=== PATIENT | male | born 1960 | race Two or more races ===

== ENCOUNTER 2018-03-15 12:24 | Day surgery (SDC) | payer BC ==
[~2018-03-15] VITALS: Ht 182.9 cm; Wt 128.9 kg
[2018-03-15] MEDS ORDERED: LACTATED RINGERS 1,000 ML IV SCH (12:58)
[2018-03-15] MEDS ORDERED: LOSA1TAB25 PO (13:06)
[2018-03-15] MEDS ORDERED: SULF1TAB24 PO (13:06)
[2018-03-15] MEDS ORDERED: FINA5TAB4 PO (13:06)
[2018-03-15] MEDS ORDERED: MELO15TA24 PO (13:06)
[2018-03-15] MEDS ORDERED: ROSU10TA PO (13:06)
[2018-03-15] MEDS ORDERED: PRED20TA PO (13:06)
[2018-03-15 13:12] VITALS: BP 146/96
[2018-03-15] MEDS ORDERED: PLEASE ENTER HEIGHT AND WEIGHT MC SCH (13:30)
[2018-03-15] MEDS ORDERED: PLEASE ENTER ALLERGIES MC SCH (13:30)
[2018-03-15] MEDS ORDERED: EPINEPHRINE 1 MG/ML, 1ML ONE (13:31)
[2018-03-15] MEDS ORDERED: BUPIVACAINE/PF 0.5% ONE (13:31)
[2018-03-15] MEDS ORDERED: MIDAZOLAM 1 MG/ML, 2ML ONE (13:34)
[2018-03-15] MEDS ORDERED: FENTANYL PF 100 MCG/2ML ONE ×4 (13:34→15:09)
[2018-03-15] MEDS ORDERED: LABETALOL 5MG/ML, 20ML IV PRN (14:00)
[2018-03-15] MEDS ORDERED: hydrALAzine 20 MG/ML, 1ML IV PRN (14:00)
[2018-03-15] MEDS ORDERED: EPHEDRINE 50 MG/ML, 1ML IVPush PRN (14:00)
[2018-03-15] MEDS ORDERED: OXYcodone 5 MG/5 ML ORAL.SOL UDC PO PRN (14:00)
[2018-03-15] MEDS ORDERED: ONDANSETRON 2MG/ML, 2ML IVPush PRN (14:00)
[2018-03-15] MEDS ORDERED: morphine SULFATE 10 MG/ML, 1ML IV PRN (14:00)
[2018-03-15] MEDS ORDERED: ACETAMINOPHEN 325 MG TABLET PO PRN (14:00)
[2018-03-15] MEDS ORDERED: PROMETHAZINE 25 MG/ML, 1ML IV PRN (14:00)
[2018-03-15] MEDS ORDERED: MEPERIDINE/PF 25MG/0.5ML IVPush PRN (14:00)
[2018-03-15] MEDS ORDERED: METOPROLOL 1 MG/ML, 5ML IV PRN (14:00)
[2018-03-15] MEDS ORDERED: ALBUTEROL SULFATE 2.5 MG/3 ML NPPB PRN (14:00)
[2018-03-15] MEDS ORDERED: PROPOFOL 10 MG/ML, 20ML ONE (14:06)
[2018-03-15] MEDS ORDERED: CEFAZOLIN 1,000 MG ONE ×3 (14:06)
[2018-03-15] MEDS ORDERED: DEXAMETHASONE 4 MG/ML, 1ML ONE (14:06)
[2018-03-15] MEDS ORDERED: METOCLOPRAMIDE 5 MG/ML, 2ML ONE (14:07)
[2018-03-15 14:57] LABS: ALBUMIN 3.7 g/dL (3.4-5.0); ANION GAP 9 mmol/L (5-15); CALCIUM 8.8 mg/dL (8.5-10.1); CHLORIDE 107 mmol/L (98-107)
[2018-03-15 15:02] LABS: ALANINE AMINOTRANSFERASE 26 U/L (12-78); ALKALINE PHOSPHATASE 82 U/L (45-117); BILIRUBIN,TOTAL 1.2 mg/dL (0.2-1.0); CREATININE 0.65 mg/dL (0.7-1.3); TOTAL PROTEIN 7.6 g/dL (6.4-8.2)
[2018-03-15] MEDS ORDERED: ACETAMINOPHEN 650 MG/20.3 ML UDC ONE (15:09)
[2018-03-15] MEDS ORDERED: OXYcodone 5 MG/5 ML ORAL.SOL UDC ONE (15:09)
[2018-03-15] MEDS: FENTANYL PF 100 MCG/2ML IV PRN ×3 (15:15→15:35)
== END 2018-03-15 18:45 | disposition home or self-care (01) ==
LOC: OUT 12:24
PROVIDERS: ATTEND Surgery
DX: I83.018 Varicose veins of right lower extremity with ulcer other part of lower leg (principal); I10 Essential (primary) hypertension; E66.01 Morbid (severe) obesity due to excess calories; F41.9 Anxiety disorder, unspecified; Z72.89 Other problems related to lifestyle
CPT/HCPCS: 36415; 37722; 80053; J0171; J0690; J1100; J2250; J2704; J2765; J3010; J3490; J7120

== ENCOUNTER 2019-11-20 10:22 | Outpatient (CLI) | payer BC ==
[~2019-11-20 10:22] MED LIST: FINA5TAB4 PO; LOSA1TAB25 PO; MELO15TA24 PO; PRED20TA PO; ROSU10TA2 PO; SULF1TAB24 PO
== END 2019-11-20 23:59 | disposition home or self-care (01) ==
LOC: ROC 10:22
PROVIDERS: ATTEND Radiology Radiation Oncology
DX: C61 Malignant neoplasm of prostate (principal); I10 Essential (primary) hypertension; F17.200 Nicotine dependence, unspecified, uncomplicated; Z98.890 Other specified postprocedural states; Z90.89 Acquired absence of other organs; Z68.38 Body mass index [BMI] 38.0-38.9, adult
CPT/HCPCS: 99214; G0463

== ENCOUNTER 2019-12-27 07:16 | Outpatient (CLI) | payer BC, OTHER ==
[2019-12-27] MEDS ORDERED: LEUPROLIDE (ELIGARD) 22.5 MG SYR SQ ONE (10:00)
== END 2019-12-27 23:59 | disposition home or self-care (01) ==
LOC: ROC 07:16
PROVIDERS: ATTEND Radiology Radiation Oncology
DX: Z51.11 Encounter for antineoplastic chemotherapy (principal); C61 Malignant neoplasm of prostate; I10 Essential (primary) hypertension; Z87.891 Personal history of nicotine dependence
CPT/HCPCS: 96402; J9217

== ENCOUNTER 2020-03-13 10:49 | Outpatient (CLI) | payer OTHER | END 2020-03-13 23:59 | disposition home or self-care (01) | LOC: ROC 10:49 | PROVIDERS: ATTEND Radiology Radiation Oncology | DX: Z02.9 Encounter for administrative examinations, unspecified (principal) | CPT/HCPCS: 77385 ==

== ENCOUNTER 2020-05-08 09:30 | Outpatient (CLI) | payer OTHER | END 2020-05-08 23:59 | disposition home or self-care (01) | LOC: ROC 09:30 | PROVIDERS: ATTEND Radiology Radiation Oncology | DX: Z08 Encounter for follow-up examination after completed treatment for malignant neoplasm (principal); C61 Malignant neoplasm of prostate | CPT/HCPCS: 99213; G0463 ==

== ENCOUNTER 2020-07-07 07:29 | Outpatient (CLI) | payer OTHER ==
[2020-07-07] MEDS ORDERED: LEUPROLIDE (ELIGARD) 22.5 MG SYR SQ ONE (08:45)
== END 2020-07-07 23:59 | disposition home or self-care (01) ==
LOC: ROC 07:29
PROVIDERS: ATTEND Radiology Radiation Oncology
DX: Z51.11 Encounter for antineoplastic chemotherapy (principal); C61 Malignant neoplasm of prostate
CPT/HCPCS: 96402; G0463; J9217; 99213

== ENCOUNTER → 2020-10-01 | Outpatient (CLI) | payer OTHER ==
[~2020-10-01] MED LIST changes: +LEUPROLIDE (ELIGARD) 22.5 MG SYR SQ ONE
== END | disposition home or self-care (01) ==
LOC: ROC 09:33
PROVIDERS: ATTEND Radiology Radiation Oncology
DX: Z51.11 Encounter for antineoplastic chemotherapy (principal); C61 Malignant neoplasm of prostate
CPT/HCPCS: 96402; J9217

== ENCOUNTER → 2020-12-31 | Outpatient (CLI) | payer OTHER | END | disposition home or self-care (01) | LOC: ROC 08:46 | PROVIDERS: ATTEND Radiology Radiation Oncology | DX: Z51.11 Encounter for antineoplastic chemotherapy (principal); C61 Malignant neoplasm of prostate | CPT/HCPCS: 96402; J9217 ==

== ENCOUNTER 2021-03-15 08:14 | Outpatient (CLI) | payer OTHER ==
[~2021-03-15 08:14] MED LIST changes: -LEUPROLIDE (ELIGARD) 22.5 MG SYR SQ ONE; +SULF-23 PO; -SULF1TAB24 PO
[2021-03-15] MEDS ORDERED: LEUPROLIDE (ELIGARD) 22.5 MG SYR SQ ONE (11:30)
== END 2021-03-15 23:59 | disposition home or self-care (01) ==
LOC: ROC 08:14
PROVIDERS: ATTEND Radiology Radiation Oncology
DX: Z51.11 Encounter for antineoplastic chemotherapy (principal); C61 Malignant neoplasm of prostate
CPT/HCPCS: 96402; J9217